=== PATIENT | female | born 1980 | race Two or more races ===

== ENCOUNTER 2016-05-22 18:10 | Emergency (ER) | payer OTHER ==
[~2016-05-22] VITALS: Ht 160 cm; Wt 78.5 kg
[~2016-05-22 18:10] MED LIST: ALBUTEROL SULF8.5 GM INH; AMOXICILLIN500 MG ORAL; ANESTHETIC ORAL14 GM BUCCAL; AZITHROMYCIN250 MG ORAL; BACTRIM-DS1 EA ORAL; BENADRYL A12.5 MG/5 ORAL; CEPHALEXIN500 MG ORAL; GUIAFEN-PSE 10120 ML PO; IBUPROFEN600 MG ORAL; IBUPROFEN800 MG ORAL; KEFLEX500 MG ORAL; NKM; NORCO 5-325 TA1 EAC1 ORAL; NORCO 5-325 TA1 EACH ORAL; PENICILLIN V P500 MG ORAL; POLYTRIM EYE DR10 M1 OP; POLYTRIM OP SOL10 ML OPHTHALM; PREDNISONE50 MG PO; TRAMADOL HCL50 MG ORAL
[2016-05-22 18:23] VITALS: BP 119/70
--- NOTE | 2016-05-22 18:39 | Emergency Room Report ---
History of Present Illness General Chief Complaint: Earache Source: Patient Present Illness HPI 36-year-old female presents to emergency Department complaining of intermittent dry cough times one week nasal congestion, rhinorrhea times one week. Patient also reports 10/ 10 left ear pain x2 days. Patient states she's been taking NyQuil and Motrin at home with minimal relief of pain. Patient denies fevers reports chills. She denies trauma to the ear pain on the external ear or decrease in hearing. Denies CP, Palpitations, LOC, AMS, dizziness, Changes in Vision, Sensation, paresthesias, or a sudden severe headache. Allergies: Coded Allergies: No Known Allergies (Unverified , 08/10/12) Patient History Past Medical History: see triage record Past Surgical History: none Pertinent Family History: none Now: No Immunizations: UTD Reviewed Nursing Documentation: PMH: Agreed, PSxH: Agreed Nursing Documentation-PMH Past Medical History: No Stated History Review of Systems All Other Systems: negative except mentioned in HPI Physical Exam Vital Signs Date Time Temp Pulse Resp B/P Pulse Ox O2 Delivery O2 Flow Rate FiO2 05/22/16 18:13 98.1 71 20 119/69 99 Room Air Sp02 EP Interpretation: reviewed, normal General Appearance: no apparent distress, alert, GCS 15, non-toxic Head: normocephalic, atraumatic Eyes: bilateral eye PERRL, bilateral eye normal inspection ENT: hearing grossly normal, normal pharynx, no angioedema, normal voice, uvula midline, nasal congestion, other - Left TM is bulging and decreased motility. Neck: full range of motion, supple/symm/no masses Respiratory: chest non-tender, lungs clear, normal breath sounds, no rhonchi, no respiratory distress, no retraction, no accessory muscle use, no wheezing, speaking full sentences Cardiovascular #1: regular rate, rhythm, no edema Cardiovascular #2: 2+ carotid (R), 2+ carotid (L), 2+ radial (R), 2+ radial (L) , 2+ dorsalis pedis (R), 2+ dorsalis pedis (L) Gastrointestinal: normal bowel sounds, non tender, soft, no guarding, no rebound Rectal: deferred Genitourinary: normal inspection, no CVA tenderness Musculoskeletal: back normal, gait/station normal, normal range of motion, non- tender, no calf tenderness Neurologic: alert, oriented x3, responsive, motor strength/tone normal, sensory intact, speech normal Psychiatric: judgement/insight normal, memory normal, mood/affect normal, no suicidal/homicidal ideation Reflexes: 4+ bicep (R), 4+ bicep (L), 4+ tricep (R), 4+ tricep (L), 4+ knee (R) , 4+ knee (L) Skin: normal color, no rash, warm/dry, well hydrated Lymphatic: no adenopathy Medical Decision Making PA Attestation Dr. galicia is my supervising Physician whom patient management has been discussed with. Diagnostic Impression: Primary Impression: Otitis media Qualified Codes: H66.92 - Otitis media, unspecified, left ear ER Course Pt. presents to the ED c/o nasal congestion and cough x 1 week with 9/10 in severity Left ear pain x 2 day(s) - Taking Nyquil and motrin. Ddx considered but are not limited to OM, OE, mastoiditis, TM perforation, FB, URI, Sinusitis. Vital signs: are WNL, pt. is afebrile H&PE are most consistent with otitis media ORDERS: none required at this time, the diagnosis is clinical -OTOSCOPY: Left TM has decreased motility, is erythematous and bulging. right TM WNL. ED INTERVENTIONS: None required at this time. DISCHARGE: At this time pt. is stable for d/c to home. With PO ABX. Will provide printed patient care instructions, and any necessary prescriptions. Care plan and follow up instructions have been discussed with the patient prior to discharge. Last Vital Signs Date Time Temp Pulse Resp B/P Pulse Ox O2 Delivery O2 Flow Rate FiO2 05/22/16 18:13 98.1 71 20 119/69 99 Room Air Disposition: HOME, SELF-CARE Condition: Stable Scripts D-Methorphan Hb/Prometh Hcl* (PROMETHAZINE-DM SYRUP*) 118 Ml Syrup 5 ML ORAL Q6H Y for For Cough, #118 ML 0 Refills Prov: Awad,Arcelia P.A. 05/22/16 Pseudoephedrine Hcl* (NEXAFED*) 30 Mg Tablet 30 MG ORAL Q6H Y for congestion, #15 TAB Prov: RiteshArcelia P.A. 05/22/16 Ibuprofen* (MOTRIN*) 400 Mg Tablet 400 MG ORAL THREE TIMES A DAY, #30 TAB 0 Refills Prov: Arcelia Awad 05/22/16 Amoxicillin/Potassium Clav 875-125* (AUGMENTIN 875-125 TABLET*) 1 Each Tablet 1 TAB ORAL TWICE A DAY for 10 Days, #20 TAB Prov: Arcelia Awad 05/22/16 Patient Instructions: Otitis Media, Adult, Yylw-[id number] Additional Instructions: Take medications as directed. Follow up with PCP in 3-5 days Return sooner to ED if new symptoms occur, or current symptoms become worse. Arcelia Awad May 22, 2016 18:39
[2016-05-22] MEDS ORDERED: PROMETHAZINE-D118 ML ORAL (18:41)
[2016-05-22] MEDS ORDERED: AUGMENTIN 875-1 EAC1 ORAL (18:41)
[2016-05-22] MEDS ORDERED: NEXAFED30 MG ORAL (18:41)
[2016-05-22] MEDS ORDERED: IBUPROFEN400 MG ORAL (18:41)
[2016-05-22 19:02] VITALS: BP 119/70
== END 2016-05-22 19:02 | disposition home or self-care (01) ==
LOC: EMR 18:37
DX: H66.92 Otitis media, unspecified, left ear (principal); R09.81 Nasal congestion
CPT/HCPCS: 99284

== ENCOUNTER 2017-10-15 10:28 | Emergency (ER) | payer MEDICAID, OTHER ==
[~2017-10-15] VITALS: Ht 160 cm; Wt 81.6 kg
[~2017-10-15 10:28] MED LIST changes: +AUGMENTIN 875-1 EAC1 ORAL; +IBUPROFEN400 MG ORAL; +NEXAFED30 MG ORAL; +PROMETHAZINE-D118 ML ORAL
[2017-10-15 10:47] VITALS: BP 123/76
[2017-10-15 11:10] LABS: BASOPHILS % (AUTO) 0.8 % (0.0-2.0); EOSINOPHILS % (AUTO) 1.9 % (0.0-3.0); HEMATOCRIT 37.6 % (37.0-47.0); HEMOGLOBIN 11.8 G/DL (12.0-16.0); LYMPHOCYTES % (AUTO) 37.4 % (20.0-45.0); MEAN CORPUSCULAR VOLUME 82 FL (80-99); MONOCYTES % (AUTO) 6.1 % (1.0-10.0); NEUTROPHILS % (AUTO) 53.8 % (45.0-75.0); PLATELET COUNT 193 K/UL (150-450); RED BLOOD COUNT 4.61 M/UL (4.20-5.40); RED CELL DISTRIBUTION WIDTH 12.5 % (11.6-14.8); WHITE BLOOD COUNT 7.8 K/UL (4.8-10.8)
--- NOTE | 2017-10-15 11:10 | Emergency Room Report ---
History of Present Illness General Chief Complaint: Pain Source: Patient Present Illness HPI The patient presents with 5 days of right foot pain. She complains about pain at her right first metatarsal phalangeal joint. She does not know of any trauma that occurred there. She has taken both Tylenol and Advil without much help. The last dose of Advil was last night. She denies any fevers, rashes, redness, calf pain, swelling. She has no prior history of gout or arthritis. The pain is rated 8/10 at this time. It's burning and throbbing not radiating into her leg. No dyspnea, chest pain, back pain, headache. LNMP /16. 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 No major medical problems. Allergies: Coded Allergies: No Known Allergies (Unverified , 08/10/12) Patient History Past Medical History: see triage record Social History: Denies: smoking Social History Narrative Last Menstrual Period: 10/01/2017 Now: No Reviewed Nursing Documentation: PMH: Agreed; PSxH: Agreed Nursing Documentation-PMH Past Medical History: No Stated History Review of Systems All Other Systems: negative except mentioned in HPI Physical Exam Vital Signs Date Time Temp Pulse Resp B/P (MAP) Pulse Ox O2 Delivery O2 Flow Rate FiO2 10/15/17 10:31 98.3 67 16 123/76 99 Room Air 98.2 Sp02 EP Interpretation: reviewed, normal General Appearance: well appearing, no apparent distress Head: normocephalic, atraumatic Eyes: bilateral eye normal inspection, bilateral eye PERRL ENT: hearing grossly normal, normal voice, moist mucus membranes Neck: full range of motion, supple Respiratory: no respiratory distress, speaking full sentences Cardiovascular #2: 2+ radial (L), 2+ dorsalis pedis (R) Gastrointestinal: normal inspection Musculoskeletal: back normal, normal range of motion, no calf tenderness, other - tenderness R 1st MTP, no swelling Neurologic: alert, motor strength/tone normal, sensory intact Psychiatric: mood/affect normal Skin: no rash, other - no warmth over joint Medical Decision Making Diagnostic Impression: Primary Impression: Foot pain, right ER Course Patient presents with right first metatarsal pain. Differential includes contusion, fracture, gout amongst others. Labs will be obtained and the patient will be given Motrin. In addition an x-ray will be obtained. Labs are unremarkable except for minimally elevated ESR. X-ray revealed no fractures or bony changes. An Konrad applied by the tech. Position, tension are excellent with good relief. Neurovascular is checked by me and is normal. Findings were discussed with the patient she is stable for outpatient observation and treatment. Laboratory Tests Test 10/15/17 10:55 White Blood Count 7.8 K/UL (4.8-10.8) Red Blood Count 4.61 M/UL (4.20-5.40) Hemoglobin 11.8 G/DL (12.0-16.0) L Hematocrit 37.6 % (37.0-47.0) Mean Corpuscular Volume 82 FL (80-99) Mean Corpuscular Hemoglobin 25.6 PG (27.0-31.0) L Mean Corpuscular Hemoglobin Concent 31.4 G/DL (32.0-36.0) L Red Cell Distribution Width 12.5 % (11.6-14.8) Platelet Count 193 K/UL (150-450) Mean Platelet Volume 11.5 FL (6.5-10.1) H Neutrophils (%) (Auto) 53.8 % (45.0-75.0) Lymphocytes (%) (Auto) 37.4 % (20.0-45.0) Monocytes (%) (Auto) 6.1 % (1.0-10.0) Eosinophils (%) (Auto) 1.9 % (0.0-3.0) Basophils (%) (Auto) 0.8 % (0.0-2.0) Erythrocyte Sedimentation Rate 38 MM/HR (0-20) H Sodium Level 137 MMOL/L (136-145) Potassium Level 3.8 MMOL/L (3.5-5.1) Chloride Level 104 MMOL/L (98-107) Carbon Dioxide Level 28 MMOL/L (21-32) Anion Gap 5 mmol/L (5-15) Blood Urea Nitrogen 11 mg/dL (7-18) Creatinine 0.6 MG/DL (0.55-1.30) Estimate Glomerular Filtration Rate > 60 mL/min (>60) Glucose Level 107 MG/DL (74-106) H Uric Acid 4.7 MG/DL (2.6-7.2) Calcium Level 9.0 MG/DL (8.5-10.1) Total Bilirubin 0.3 MG/DL (0.2-1.0) Aspartate Amino Transferase (AST) 12 U/L (15-37) L Alanine Aminotransferase (ALT) 22 U/L (12-78) Alkaline Phosphatase 86 U/L (46-116) Total Protein 8.0 G/DL (6.4-8.2) Albumin 3.4 G/DL (3.4-5.0) Globulin 4.6 g/dL Albumin/Globulin Ratio 0.7 (1.0-2.7) L Other X-Ray Diagnostic Results Other X-Ray Diagnostic Results : X-Ray ordered: R foot # of Views/Limited Vs Complete: 3 View Indication: Pain Interpretation: no dislocation, no soft tissue swelling, no fractures Impression: No acute disease Electronically Signed by: Electronically signed by Pino Valenzuela MD Last Vital Signs Date Time Temp Pulse Resp B/P (MAP) Pulse Ox O2 Delivery O2 Flow Rate FiO2 10/15/17 13:11 98.2 67 16 123/76 99 Room Air 98.2 Status: improved Disposition: HOME, SELF-CARE Condition: Improved Scripts Tramadol Hcl* (ULTRAM*) 50 Mg Tablet 50 MG ORAL Q6H PRN for For Pain, #10 TAB 0 Refills Prov: Pino Valenzuela M.D. 10/15/17 Ibuprofen* (MOTRIN*) 600 Mg Tablet 600 MG ORAL Q6H PRN for For Pain, #20 TAB Prov: Pino Valenzuela M.D. 10/15/17 Pino Valenzuela M.D. October 15, 2017 11:10
[2017-10-15 11:20] LABS: ANION GAP 5 mmol/L (5-15); BLOOD UREA NITROGEN 11 mg/dL (7-18); CARBON DIOXIDE 28 MMOL/L (21-32); CHLORIDE 104 MMOL/L (98-107); CREATININE 0.6 MG/DL (0.55-1.30); POTASSIUM 3.8 MMOL/L (3.5-5.1); SODIUM 137 MMOL/L (136-145)
[2017-10-15 11:28] LABS: ALANINE AMINOTRANSFERASE 22 U/L (12-78); ALBUMIN 3.4 G/DL (3.4-5.0); ALBUMIN/GLOBULIN RATIO 0.7 (1.0-2.7); ALKALINE PHOSPHATASE 86 U/L (46-116); ASPARTATE AMINO TRANSFERASE 12 U/L (15-37); BILIRUBIN,TOTAL 0.3 MG/DL (0.2-1.0)
[2017-10-15] MEDS ORDERED: TRAMADOL HCL50 MG ORAL (12:58)
[2017-10-15] MEDS ORDERED: IBUPROFEN600 MG ORAL (12:58)
[2017-10-15 13:11] VITALS: BP 123/76
--- NOTE | 2017-10-15 14:07 | Diagnostic Imaging Report ---
Indication: Pain Comparison: None Findings: 3 views of the right foot were obtained. No acute fractures, malalignment, erosions or periostitis are identified. Soft tissues are unremarkable. Impression: No acute findings.
== END 2017-10-15 13:12 | disposition home or self-care (01) ==
LOC: EMR 11:12
DX: M79.671 Pain in right foot (principal)
CPT/HCPCS: 36415; 80053; 84550; 85025; 85651; 99284

== ENCOUNTER 2019-02-04 10:52 | Emergency (ER) | payer MEDICAID ==
[~2019-02-04] VITALS: Ht 160 cm; Wt 81.6 kg
[2019-02-04 10:57] VITALS: BP 106/66
--- NOTE | 2019-02-04 11:03 | NUR ---
ED Nurse Note: Patient accompanied by states she has recurrent sore throats and has had a painful throat since last night. Patient able to swallow salavia and states she can eat and drink but it causes pain. Back of throat visualised. No respiratory distress or symptoms. No complaints of other symptopms. Patient states she has not felt feverish. Patirnt travelled rom home and walked into ER.
--- NOTE | 2019-02-04 11:32 | Emergency Room Report ---
History of Present Illness General Chief Complaint: Sore Throat Source: Patient Present Illness HPI Patient states she has had a sore throat since this morning. She states that her throat feels swollen. She states that every time she gets a sore throat she has difficulty breathing at night. She denies fever chills. She denies nausea or vomiting. She denies headache or neck pain. She has had some congestion. She denies cough or shortness of breath. She has no other complaints. Allergies: Coded Allergies: No Known Allergies (Unverified , 08/10/12) Patient History Past Medical History: none Social History: Denies: smoking, alcohol use, drug use Last Menstrual Period: 01/21/2019 Now: No Reviewed Nursing Documentation: PMH: Agreed; PSxH: Agreed Nursing Documentation-PMH Past Medical History: No Stated History Review of Systems All Other Systems: negative except mentioned in HPI Physical Exam Vital Signs Date Time Temp Pulse Resp B/P (MAP) Pulse Ox O2 Delivery O2 Flow Rate FiO2 02/04/19 10:57 98.4 63 18 106/66 (79) 97 Room Air Sp02 EP Interpretation: reviewed, normal General Appearance: no apparent distress, alert, GCS 15, non-toxic Head: normocephalic, atraumatic Eyes: bilateral eye normal inspection, bilateral eye PERRL ENT: hearing grossly normal, no angioedema, normal voice, TMs + canals normal, pharyngeal erythema Neck: normal inspection, full range of motion, supple/symm/no masses Respiratory: chest non-tender, lungs clear, normal breath sounds, no respiratory distress, no retraction, no accessory muscle use, speaking full sentences Cardiovascular #1: regular rate, rhythm, no edema Rectal: deferred Musculoskeletal: back normal, gait/station normal, normal range of motion, non- tender Neurologic: alert, oriented x3, responsive, motor strength/tone normal, sensory intact, speech normal Psychiatric: judgement/insight normal, memory normal, mood/affect normal, no suicidal/homicidal ideation Skin: no rash, normal color Medical Decision Making Diagnostic Impression: Primary Impression: pharyngitis Additional Impression: Viral upper respiratory infection ER Course This patient has a clinical presentation consistent with pharyngitis. Physical exam is consistent with a viral etiology. There is no evidence of peritonsillar abscess or deep neck abscess. There is no airway edema. Overall , this patient had a very benign examination. The patient only needs supportive care. The patient is instructed to get [id number] lozenges. I will also give the patient Motrin as a pain medication and anti-inflammatory. The patient was given return precautions and followup instructions. Last Vital Signs Date Time Temp Pulse Resp B/P (MAP) Pulse Ox O2 Delivery O2 Flow Rate FiO2 02/04/19 11:22 98.4 78 16 98 Room Air 02/04/19 10:57 106/66 (79) Status: improved Disposition: HOME, SELF-CARE Condition: Improved Patient Instructions: Sore Throat Allyssa Hunt DO Feb 04, 2019 11:32
[2019-02-04] MEDS ORDERED: CEPACOL SORETH1 EACH ORAL (11:48)
[2019-02-04] MEDS ORDERED: MEDROL DOSEPAK4 MG ORAL (11:48)
[2019-02-04] MEDS ORDERED: IBUPROFEN800 MG ORAL (11:48)
--- NOTE | 2019-02-04 11:57 | NUR ---
ER DISCHARGE NOTE: Patient is cleared to be discharged per ERMD, pt is aox4, on room air, with stable vital signs. pt was given dc and prescription instructions, pt was able to verbalize understanding, pt id band removed. pt is able to ambulate with steady gait. pt took all belongings.
== END 2019-02-04 11:54 | disposition home or self-care (01) ==
LOC: EMR 11:50
DX: J02.9 Acute pharyngitis, unspecified (principal); J06.9 Acute upper respiratory infection, unspecified; B97.89 Other viral agents as the cause of diseases classified elsewhere
CPT/HCPCS: 99282